=== PATIENT | female | born 1935 | race Caucasian/White ===

== ENCOUNTER 2019-02-12 07:11 | Outpatient (CLI) ==
--- NOTE | 2019-02-12 08:56 | US ---
EXAM: Right upper quadrant abdominal ultrasound. History: Elevated liver enzymes. Technique: Multiple sonographic images through the abdomen were obtained. Color duplex Doppler was used to interrogate vascular flow. Findings: Limited evaluation due to bowel gas. Visualized pancreas demonstrates no gross abnormality. There is antegrade flow within the main muna l vein. The liver is not enlarged according to the sonographic measurement given. No focal liver le sions identified sonographically. The liver is not obviously echogenic. Status post cholecystectomy. Common bile duct measures 0.5 cm in caliber. No abdominal ascites. Impression: Limited evaluation due to bowel gas. The liver was not well seen but is not obviously e chogenic. Consider correlation with MRI of the abdomen with and without contrast and MRCP if elevate d liver enzymes persist.
--- NOTE | 2019-02-12 08:58 | US ---
EXAM: Renal ultrasound. History: Decreased renal function. Technique: Multiple sonographic images through the kidneys were obtained. Color duplex Doppler was used to interrogate vascular flow. Findings: The right kidney measures 10.3 cm in long length demonstrating slightly increased cortical echogenici ty without evidence for hydronephrosis, mass or shadowing calculus. The left kidney measures 9.3 cm in long length demonstrating slightly increased cortical echogenicity without evidence for hydronephrosis, mass or shadowing calculus. The bladder was not well distended. No obvious bladder wall thickening. Neither ureteral jet was se en in the bladder. Impression: 1. No hydronephrosis. 2. Slightly increased cortical echogenicity of the bilateral kidneys suggesting medical renal diseas e.
== END 2019-02-12 07:12 | disposition home or self-care (01) ==
LOC: RAD 07:11
PROVIDERS: ATTEND Family Medicine
DX: N28.9 Disorder of kidney and ureter, unspecified (principal); R74.8 Abnormal levels of other serum enzymes

== ENCOUNTER 2019-03-05 16:39 | Emergency (ER) | payer OTHER ==
[2019-03-05 16:46] VITALS: BP 142/85; TEMP 98.6; BMI 29.6
--- NOTE | 2019-03-05 17:21 | ED.PDOC ---
General ED Provider: Dr. ADRIEN COULTER Chief Complaint: Behavioral Complaint Stated Complaint: pt hx of dementia with periods of eratic behavior. Attempted leaving home. Has been accepted at [facility] behavioral unit at [place], [place]. Has been having periods of confusion-combative at times with hallucination. Referred by PCP for medical clearance. Is alert--speaking clearly at present--is cooperative. Unaware of current problems. Time Seen by Physician: 17:15 Mode of Arrival: Walk-In Information Source: Patient, Family Exam Limitations: Dementia Primary Care Provider: ERAN WELSH Referred to ED by: PCP Nursing and Triage Documentation Reviewed and Agree: Yes Does patient meet sepsis criteria?: No System Inflammatory Response Syndrome: Not Applicable Sepsis Protocol: For patient's 13 years and over: Temp is 96.8 and below OR 101 and greater Pulse >90 BPM Resp >20/minute Acutely Altered Mental Status Are patient's symptoms suggestive of a new infection, such as: -Pneumonia -Skin, Soft Tissue -Endocarditis -UTI -Bone, Joint Infection -Implantable Device -Acute Abdominal Infection -Wound Infection -Meningitis -Blood Stream Catheter Infection -Unknown Psychological Complaint Exam - Psychiatric Complaint/Exam Patient Complains Of: Present: Depression, Other (Dementia) Onset/Duration: Several months Symptoms Are: Still present Timing: Constant Episodes Lasting: Hours Initial Severity: Moderate Current Severity: Moderate Character: Present: Anxious Aggravating: Reports: Recent stress Associated Signs And Symptoms: Reports: Confused, Hallucinating, Paranoid behavior, Sleep disturbance Related History: Reports: Recent stressors ( in NH with terminal illness) . Denies: Suicidal thoughts, Homicidal thoughts Completed Suicide Risk Factors: None Patient Accompanied By: Family Patient In Custody Of Police: No Social Withdrawal Present: No Social Isolation Present: No Prior Suicide Attempt: No Injury From Prior Suicide Attempt: No Patient Uncooperative For Exam: No Mood: Present: Anxious Appearance: Present: Clean Thought Process: Present: Illogical, Flight of ideas Insight: Present: Poor Memory: Impaired Judgement: Impaired Danger To Others: No Patient Medically Stable For: Psych evaluation Differential Diagnoses: Anxiety, Depression, Other (Dementia. R/O Shizoaffective disorder and advanced Dementia) Review of Systems - Review Of Systems Constitutional: Reports: No symptoms Eyes: Reports: No symptoms Ears, Nose, Mouth, Throat: Reports: No symptoms Respiratory: Reports: No symptoms Cardiac: Reports: No symptoms GI: Reports: No symptoms : Reports: No symptoms Musculoskeletal: Reports: No symptoms Skin: Reports: No symptoms Neurological: Reports: Anxiety Endocrine: Reports: No symptoms Hematologic/Lymphatic: Reports: No symptoms All Other Systems: Reviewed and Negative Past Medical History - Past Medical History Endocrine: Reports: Unknown Cardiovascular: Reports: Unknown Respiratory: Reports: Unknown Hematological: Reports: Unknown Gastrointestinal: Reports: Unknown Genitourinary: Reports: None Neuro/Psych: Reports: Dementia Musculoskeletal: Reports: Unknown Cancer: Reports: None Last Menstrual Period: menopause - Surgical History General Surgical History: Reports: Unknown - Family History Family History: Reports: Unknown - Social History Smoking Status: Never smoker Hx Substance Use: No Alcohol Screening: None Physical Exam - Physical Exam Appearance: Well-appearing Ill-appearing: Mild Pain Distress: None Eyes: JO, EOMI, Conjunctiva clear ENT: Ears normal, Nose normal, Oropharynx normal Neck: Supple Respiratory: Airway patent, Breath sounds clear, Breath sounds equal, Respirations nonlabored Cardiovascular: RRR, Pulses normal, No rub, No murmur GI/: Soft, Nontender, No masses, Bowel sounds normal, No Organomegaly Musculoskeletal: Normal strength, ROM intact, No edema, No calf tenderness Skin: Warm, Dry, Normal color Neurological: Sensation intact, Motor intact, Reflexes intact, Cranial nerves intact, Alert, Oriented, Disoriented Psychiatric: Affect appropriate (Flat), Anxious Critical Care Note - Critical Care Note Total Time (mins): 60 Course - Course Hematology/Chemistry: 03/05/19 17:23 03/05/19 17:23 Orders, Labs, Meds: Lab Review 03/05/19 03/05/19 17:23 17:23 WBC 7.08 RBC 4.05 L Hgb 12.3 Hct 35.9 L MCV 88.6 MCH 30.4 MCHC 34.3 RDW Coeff of Livan 13.5 Plt Count 182 Immature Gran % (Auto) 0.3 Neut % (Auto) 59.4 Lymph % (Auto) 31.2 [place] % (Auto) 5.8 Eos % (Auto) 2.7 Baso % (Auto) 0.6 Immature Gran # (Auto) 0.0 Neut # (Auto) 4.2 Lymph # (Auto) 2.2 [place] # (Auto) 0.4 Eos # (Auto) 0.2 Baso # (Auto) 0.0 Sodium 137.3 Potassium 3.52 Chloride 102.9 Carbon Dioxide 25.0 Anion Gap 12.92 BUN 13.3 Creatinine 1.07 Estimated GFR (MDRD) 49.00 BUN/Creatinine Ratio 12.42 Glucose 140.1 H Calcium 9.27 Total Bilirubin 1.45 H AST 28.8 ALT 9.8 Alkaline Phosphatase 106.3 Total Protein 7.68 Albumin 4.57 Globulin 3.11 Albumin/Globulin Ratio 1.46 Salicylate Level mg/dL < 1.00 Acetaminophen < 10.0 L Plasma/Serum Alcohol < 10.0 Orders Category Date Time Status EKG-(ED ONLY) Stat CARDIO 03/05/19 17:13 Completed ED SLOOP CAPTAIN APPLIED ONCE EMERGENCY 03/05/19 17:13 Active ACETAMINOPHEN Stat LAB 03/05/19 17:23 Completed BLOOD ALCOHOL Stat LAB 03/05/19 17:23 Completed CBC W/ AUTO DIFF Stat LAB 03/05/19 17:23 Completed COMPREHENSIVE METABOLIC PANEL Stat LAB 03/05/19 17:23 Completed DRUG SCREEN, URINE, RAPID Stat LAB 03/05/19 17:13 Ordered SALICYLATE Stat LAB 03/05/19 17:23 Completed URINALYSIS C & S IF INDICATED Stat LAB 03/05/19 17:13 Uncollected Vital Signs: Temp Pulse Resp BP Pulse Ox 03/05/19 16:40 98.6 F 83 20 142/85 H 96 Departure - Departure Time of Disposition: 18:30 Disposition: TSF TO PSYCH HOSP/UNIT Discharge Problem: Dementia, Depression Instructions: Alzheimer Disease (DC) Condition: Fair Pt referred to PMD for follow-up: Yes IPMP verified?: No Additional Instructions: Cleared for transfer Allergies/Adverse Reactions: Allergies No Known Allergies Allergy (Unverified 03/05/19 16:47) Home Medications: Ambulatory Orders 1 [Unobtainable] 03/05/19 Disposition Discussed With: Patient, Family
[2019-03-05] MEDS ORDERED: VISTARIL INJ IM STA (18:51)
== END 2019-03-05 19:15 ==
LOC: ED 16:39
DX: F03.90 Unspecified dementia, unspecified severity, without behavioral disturbance, psychotic disturbance, mood disturbance, and anxiety (principal); F32.9 Major depressive disorder, single episode, unspecified
CPT/HCPCS: 36415; 80053; 80307; 85025; 93005; 93010; 96372; 99285

== ENCOUNTER 2019-03-05 19:13 | Outpatient (CLI) | payer OTHER ==
[2019-03-05 16:46] VITALS: BMI 29.6
== END 2019-03-05 19:57 ==
LOC: AMBL 19:13
PROVIDERS: ATTEND Family Medicine
DX: R46.89 Other symptoms and signs involving appearance and behavior (principal)

== ENCOUNTER 2019-07-21 10:56 | Inpatient (IN) ==
[2019-07-21 11:05] VITALS: BMI 23.3
--- NOTE | 2019-07-21 12:02 | ED.PDOC ---
General ED Provider: Dr. ADRIEN COULTER Chief Complaint: Weakness Stated Complaint: Has dementia and has develped progressive weakness over past month. Was residing in [facility] with her but he 4 weeks ago after which patient was taken home to live with her Son. He states since then she has progressively became weaker, less interactive, less oral intake and refuses to ambulate.He states up until last few weeks she would ambulate and function independently. Time Seen by Physician: 11:45 Mode of Arrival: Wheelchair Information Source: Patient, Family Exam Limitations: Dementia Primary Care Provider: ERAN JFEFERSON Nursing and Triage Documentation Reviewed and Agree: Yes Does patient meet sepsis criteria?: Yes If yes, has appropriate treatment been initiated?: No System Inflammatory Response Syndrome: Pulse >90 BPM, Acutely Altered Mental Status, Not Applicable Sepsis Protocol: For patient's 13 years and over: Temp is 96.8 and below OR 101 and greater Pulse >90 BPM Resp >20/minute Acutely Altered Mental Status Are patient's symptoms suggestive of a new infection, such as: -Pneumonia -Skin, Soft Tissue -Endocarditis -UTI -Bone, Joint Infection -Implantable Device -Acute Abdominal Infection -Wound Infection -Meningitis -Blood Stream Catheter Infection -Unknown Neurological Complaint Exam - Weakness Complaint/Exam Onset: Gradual Duration: 3 weeks Symptoms Are: Still present Timing: Intermittent Initial Severity: Moderate Current Severity: Moderate Character: Reports: Weak Aggravating: Reports: Position change, Supine to erect Alleviating: Reports: Rest, Lying down Associated Signs and Symptoms: Reports: Nausea, Short of air, Unsteady gait Related History: Similar episode JVD Present: No Carotid Bruit Present: No Nystagmus Present: No Gag Reflex Present: Yes Meningeal Signs Positive: No Focal Weakness: Present: None Focal Sensory Loss: Present: None Gait: Unable [id number]: Normal Findings Differential Diagnoses: Other Review of Systems - Review Of Systems Constitutional: Reports: Malaise, Weakness Eyes: Reports: No symptoms Ears, Nose, Mouth, Throat: Reports: No symptoms Respiratory: Reports: No symptoms Cardiac: Reports: No symptoms GI: Reports: Poor appetite, Poor fluid intake : Reports: Dysuria, Frequency, Incontinence, Urgency Musculoskeletal: Reports: No symptoms Skin: Reports: No symptoms Neurological: Reports: Depressed, Cognitive dysfunction, Unable to move lower ext, Weakness Endocrine: Reports: No symptoms Hematologic/Lymphatic: Reports: No symptoms All Other Systems: Reviewed and Negative Past Medical History - Past Medical History Previously Healthy: No (Dementia) Endocrine: Reports: Unknown Cardiovascular: Reports: Unknown Respiratory: Reports: Unknown Hematological: Reports: Unknown Gastrointestinal: Reports: Unknown Genitourinary: Reports: None Neuro/Psych: Reports: Dementia Musculoskeletal: Reports: Unknown Cancer: Reports: None Last Menstrual Period: none - Surgical History General Surgical History: Reports: Unknown - Family History Family History: Reports: Unknown - Social History Smoking Status: Never smoker Hx Substance Use: No Alcohol Screening: None - Immunizations Tetanus Shot up to Date: Yes Physical Exam - Physical Exam Appearance: Ill-appearing, No pain distress, Obese Ill-appearing: Moderate Pain Distress: None Eyes: JO, EOMI, Conjunctiva clear ENT: Ears normal, Nose normal, Oropharynx normal Neck: Supple Respiratory: Airway patent, Breath sounds clear, Breath sounds equal, Respirations nonlabored Cardiovascular: RRR, Pulses normal, No rub, No murmur GI/: Soft, Nontender, No masses, Bowel sounds normal, No Organomegaly Musculoskeletal: Normal strength, ROM intact, No edema, No calf tenderness Skin: Warm, Dry, Pale Neurological: Sensation intact, Motor intact, Reflexes intact, Cranial nerves intact, Alert, Oriented Psychiatric: Affect appropriate, Mood appropriate Interpretation - Radiology Interpretation Radiology Interpretation By: Radiologist Radiology Results: No acute changes Exam Interpreted: Portable CXR Re-Evaluation - Re-Evaluation Time of Re-Evaluation: 14:15 Status: Unchanged Vital Signs Stable: Yes Physician Notification - Case Discussed Physician Notified: Dr Jefferson Time of Notification: 14:05 (admit Patient) Critical Care Note - Critical Care Note Total Time (mins): 60 Course - Course Hematology/Chemistry: 07/21/19 12:20 07/21/19 12:20 Orders, Labs, Meds: Lab Review 07/21/19 07/21/19 07/21/19 11:31 11:31 12:10 WBC RBC Hgb Hct MCV MCH MCHC RDW Coeff of Livan Plt Count Immature Gran % (Auto) Neut % (Auto) Lymph % (Auto) [place] % (Auto) Eos % (Auto) Baso % (Auto) Immature Gran # (Auto) Neut # (Auto) Lymph # (Auto) Campbell # (Auto) Eos # (Auto) Baso # (Auto) Sodium Potassium Chloride Carbon Dioxide Anion Gap BUN Creatinine Estimated GFR (MDRD) BUN/Creatinine Ratio Glucose Lactic Acid Uric Acid Calcium Total Bilirubin AST ALT Alkaline Phosphatase Total Creatine Kinase CK-MB (CK-2) CK-MB (CK-2) % Troponin I Total Protein Albumin Globulin Albumin/Globulin Ratio Procalcitonin Urine Color Yellow Urine Clarity Turbid Urine pH 5.5 Ur Specific [place] >=1.030 Urine Protein 1+ Urine Glucose (UA) Negative Urine Ketones 2+ Urine Blood 1+ Urine Nitrite Positive Urine Bilirubin 1+ Urine Urobilinogen 0.2 Ur Leukocyte Esterase 1+ Urine Microscopic RBC 5-10 Urine Microscopic WBC 50-100 Ur Squamous Epith Cells Not present Amorphous Sediment 4+ Urine Bacteria 2+ Urine Opiates Screen Negative Ur Oxycodone Screen Negative Urine Methadone Screen Negative Ur Propoxyphene Screen Negative Ur Barbiturates Screen Negative U Tricyclic Antidepress Negative Ur Phencyclidine Scrn Negative Ur Amphetamine Screen Negative U Methamphetamines Scrn Negative U Benzodiazepines Scrn Negative Urine Cocaine Screen Negative U Cannabinoids Screen Negative Influ A Molecular Assay Negative by naat Influ B Molecular Assay Negative by naat 07/21/19 07/21/19 07/21/19 12:20 12:20 12:20 WBC 10.67 H RBC 3.70 L Hgb 11.6 L Hct 33.4 L MCV 90.3 MCH 31.4 H MCHC 34.7 RDW Coeff of Livan 13.7 Plt Count 169 Immature Gran % (Auto) 0.5 Neut % (Auto) 86.4 Lymph % (Auto) 5.2 L [place] % (Auto) 7.5 Eos % (Auto) 0.2 Baso % (Auto) 0.2 Immature Gran # (Auto) 0.1 Neut # (Auto) 9.2 H Lymph # (Auto) 0.6 [place] # (Auto) 0.8 Eos # (Auto) 0.0 Baso # (Auto) 0.0 Sodium 138.4 Potassium 2.32 L* Chloride 95.5 L Carbon Dioxide 31.9 H Anion Gap 13.32 BUN 20.8 H Creatinine 1.42 H Estimated GFR (MDRD) 36.00 BUN/Creatinine Ratio 14.64 Glucose 179.1 H Lactic Acid Uric Acid 7.94 H Calcium 8.97 Total Bilirubin 2.76 H AST 29.1 ALT 13.1 Alkaline Phosphatase 79.1 Total Creatine Kinase 174.2 H CK-MB (CK-2) 1.630 CK-MB (CK-2) % 0.9300 Troponin I 0.027 Total Protein 7.74 Albumin 4.08 Globulin 3.66 Albumin/Globulin Ratio 1.11 Procalcitonin 0.26 Urine Color Urine Clarity Urine pH Ur Specific [place] Urine Protein Urine Glucose (UA) Urine Ketones Urine Blood Urine Nitrite Urine Bilirubin Urine Urobilinogen Ur Leukocyte Esterase Urine Microscopic RBC Urine Microscopic WBC Ur Squamous Epith Cells Amorphous Sediment Urine Bacteria Urine Opiates Screen Ur Oxycodone Screen Urine Methadone Screen Ur Propoxyphene Screen Ur Barbiturates Screen U Tricyclic Antidepress Ur Phencyclidine Scrn Ur Amphetamine Screen U Methamphetamines Scrn U Benzodiazepines Scrn Urine Cocaine Screen U Cannabinoids Screen Influ A Molecular Assay Influ B Molecular Assay 07/21/19 12:20 WBC RBC Hgb Hct MCV MCH MCHC RDW Coeff of Livan Plt Count Immature Gran % (Auto) Neut % (Auto) Lymph % (Auto) [place] % (Auto) Eos % (Auto) Baso % (Auto) Immature Gran # (Auto) Neut # (Auto) Lymph # (Auto) [place] # (Auto) Eos # (Auto) Baso # (Auto) Sodium Potassium Chloride Carbon Dioxide Anion Gap BUN Creatinine Estimated GFR (MDRD) BUN/Creatinine Ratio Glucose Lactic Acid 1.05 Uric Acid Calcium Total Bilirubin AST ALT Alkaline Phosphatase Total Creatine Kinase CK-MB (CK-2) CK-MB (CK-2) % Troponin I Total Protein Albumin Globulin Albumin/Globulin Ratio Procalcitonin Urine Color Urine Clarity Urine pH Ur Specific [place] Urine Protein Urine Glucose (UA) Urine Ketones Urine Blood Urine Nitrite Urine Bilirubin Urine Urobilinogen Ur Leukocyte Esterase Urine Microscopic RBC Urine Microscopic WBC Ur Squamous Epith Cells Amorphous Sediment Urine Bacteria Urine Opiates Screen Ur Oxycodone Screen Urine Methadone Screen Ur Propoxyphene Screen Ur Barbiturates Screen U Tricyclic Antidepress Ur Phencyclidine Scrn Ur Amphetamine Screen U Methamphetamines Scrn U Benzodiazepines Scrn Urine Cocaine Screen U Cannabinoids Screen Influ A Molecular Assay Influ B Molecular Assay Orders Category Date Time Status EKG-(ED ONLY) Stat CARDIO 07/21/19 12:03 Completed VITAL SIGNS Q30MIN CARE 07/21/19 12:03 Active IV [ED IV/MEDIPORT/POWERPORT] .ONCE EMERGENCY 07/21/19 12:03 Active BLOOD CULTURE (ED ONLY) Stat LAB 07/21/19 12:20 Received CBC W/ AUTO DIFF Stat LAB 07/21/19 12:20 Completed CMP [COMPREHENSIVE METABOLIC PANEL] Stat LAB 07/21/19 12:20 Completed CPK [CREATINE KINASE] Stat LAB 07/21/19 12:20 Completed FLU A & B MOLECULAR [FLU A/B MOLECULAR] Stat LAB 07/21/19 12:10 Completed LACTIC ACID Stat LAB 07/21/19 12:20 Completed PROCALCITONIN Stat LAB 07/21/19 12:20 Completed TROPONIN I Stat LAB 07/21/19 12:20 Completed UA [URINALYSIS C & S IF INDICATED] Stat LAB 07/21/19 11:31 Completed URIC ACID Stat LAB 07/21/19 12:20 Completed URINE CULTURE Stat LAB 07/21/19 11:31 Received URINE DRUG SCREEN (RAPID FOR ED) [DRUG SCREEN, URINE, LAB 07/21/19 11:31 Completed RAPID] Stat 0.9 % Sodium Chloride [Saline Flush] MEDS 07/21/19 12:03 Active 1 syr IVF PRN PRN Ceftriaxone/D5w 1 gm Premix [Rocephin 1 gm/50 ml D5w] MEDS 07/21/19 13:20 Discontinued 1 gm in 50 ml IV ONCE Potassium Chloride [Potassium Chloride Premix Run] 100 MEDS 07/21/19 13:14 Discontinued ml IV .STK-MED Potassium Chloride [Potassium Chloride Premix Run] 20 MEDS 07/21/19 13:12 Active meq Premix 100 ml Water 1 bag IV ONCE Potassium Chloride [Potassium Chloride Premix Run] 20 MEDS 07/21/19 13:10 Active meq Premix 100 ml Water 2 bag IV ONCE Sodium Chloride 0.9% [Sodium Chloride] 1,000 ml MEDS 07/21/19 12:12 Discontinued IV BOLUS Sodium Chloride 0.9% [Sodium Chloride] 1,000 ml MEDS 07/21/19 13:00 Active IV BOLUS CHEST, 1V AP ONLY Stat RADS 07/21/19 12:04 Completed Medications Generic Name Dose Route Start Last Admin Trade Name Freq PRN Reason Stop Dose Admin Sodium Chloride 1,000 mls @ 125 mls/hr 07/21/19 13:00 07/21/19 12:45 Sodium Chloride IV 07/21/19 20:11 125 mls/hr BOLUS STA Administration Potassium Chloride 20 meq/ 100 mls @ 50 mls/hr 07/21/19 13:12 07/21/19 13:26 Sterile Water IV 07/21/19 15:11 50 mls/hr ONCE STA Administration Potassium Chloride 20 meq/ 200 mls @ 100 mls/hr 07/21/19 13:10 07/21/19 13:29 Sterile Water IV 07/21/19 15:09 Not Given ONCE STA Sodium Chloride 1 syr 07/21/19 12:03 Saline Flush IVF PRN PRN To flush IV Discontinued Medications Generic Name Dose Route Start Last Admin Trade Name Corby PRN Reason Stop Dose Admin Sodium Chloride 1,000 mls @ 500 mls/hr 07/21/19 12:12 07/21/19 13:39 Sodium Chloride IV 07/21/19 14:11 Not Given BOLUS STA CEFTRIAXONE/D5W 1 GM PREMIX 1 gm in 50 mls @ 75 mls/hr 07/21/19 13:20 13:33 Rocephin 1 Gm/50 Ml D5w IV 07/21/19 13:59 75 mls/hr ONCE STA Administration Vital Signs: Temp Pulse Resp BP Pulse Ox 07/21/19 10:57 99.9 F H 99 H 16 127/74 98 Departure - Departure Time of Disposition: 14:10 Disposition: ADMITTED INPATIENT Discharge Problem: Acute UTI (urinary tract infection), Sepsis, Dementia Condition: Stable Pt referred to PMD for follow-up: Yes (Dr Jefferson) IPMP verified?: No Allergies/Adverse Reactions: Allergies No Known Allergies Allergy (Verified 07/21/19 11:11) Home Medications: Ambulatory Orders Acetaminophen with Codeine [Acetaminophen-Cod #3 Tablet] 1 each PO Q6H PRN 07/21 Alogliptin Benzoate [Alogliptin] 12.5 mg PO DAILY 07/21/19 Bismuth Subsalicylate [Pepto-Bismol] 262 mg PO Q6H PRN 07/21/19 Buspirone HCl 10 mg PO TID 07/21/19 Diclofenac Sodium 100 gm TP Q6H PRN 07/21/19 Donepezil HCl 10 mg PO BEDTIME 07/21/19 Folic Acid 1 mg PO DAILY 07/21/19 Losartan Potassium [Cozaar] 25 mg PO DAILY 07/21/19 Memantine HCl 10 mg PO BID 07/21/19 Omeprazole [Prilosec] 20 mg PO BIDAC 07/21/19 Risperidone [Risperdal] 0.5 mg PO TID 07/21/19 Sitagliptin Phosphate [Januvia] 50 mg PO DAILY 07/21/19 Tramadol HCl 50 mg PO Q6H PRN 07/21/19 Trazodone HCl 50 mg PO BEDTIME 07/21/19 Vortioxetine Hydrobromide [Brintellix] 5 mg PO DAILY 07/21/19 Disposition Discussed With: Patient, Other (Dr Jefferson)
[2019-07-21] MEDS ORDERED: SODIUM CHLORIDE 1,000 ML IV STA ×2 (12:12→13:00)
[2019-07-21] MEDS ORDERED: POTASSIUM CHLORIDE 20 MEQ VIAL- ADDITIVE ONLY IV SCH (13:00)
--- NOTE | 2019-07-21 13:02 | DI ---
EXAM: Chest one view HISTORY: Cough COMPARISON: 08/31/2008 TECHNIQUE: Single view of the chest was performed FINDINGS: Mild left basilar subsegmental atelectasis and/or scarring. No airspace consolidation. T here is no pleural effusion or pneumothorax. The heart is normal in size. The mediastinal contour i s normal. There are no acute abnormalities of the bones. Cervical and lumbar spinal fusion hardware is incompletely imaged. IMPRESSION: No acute cardiopulmonary process.
[2019-07-21] MEDS ORDERED: POTASSIUM CHLORIDE IV STA ×3 (13:06→13:12)
[2019-07-21] MEDS ORDERED: WATER IV STA ×3 (13:06→13:12)
[2019-07-21] MEDS ORDERED: POTASSIUM CHLORIDE 20 MEQ/100 ML IV ONE (13:14)
[2019-07-21] MEDS ORDERED: ROCEPHIN 1 GM/50 ML D5W 1 GM/50 ML BAG IV STA (13:20)
[2019-07-21] MEDS ORDERED: TYLENOL PO PRN (14:18)
[2019-07-21] MEDS ORDERED: ULTRAM PO PRN (14:25)
[2019-07-21] MEDS ORDERED: NON-FORMULARY MEDICATION (Risperidone [Risperdal] 0.5 MG) PO SCH (15:00)
[2019-07-21] MEDS: BUSPAR PO SCH ×2 (16:15→20:14)
[2019-07-21] MEDS: RISPERDAL PO SCH ×2 (16:16→20:14)
[2019-07-21] MEDS: PRILOSEC PO SCH (16:17)
[2019-07-21] MEDS: NAMENDA PO SCH (20:14)
[2019-07-21] MEDS: ARICEPT PO SCH (20:14)
[2019-07-21] MEDS: DESYREL PO SCH (20:15)
[2019-07-22] MEDS: PRILOSEC PO SCH ×2 (05:43→16:57)
[2019-07-22] MEDS ORDERED: WATER IV SCH (07:00)
[2019-07-22] MEDS ORDERED: POTASSIUM CHLORIDE IV SCH (07:00)
[2019-07-22] MEDS ORDERED: POTASSIUM CHLORIDE 10 MEQ/100 ML IV ONE (07:39)
[2019-07-22] MEDS: K-DUR PO SCH ×4 (07:55→20:43)
[2019-07-22] MEDS ORDERED: POTASSIUM CHLORIDE IV STA (08:04)
[2019-07-22] MEDS ORDERED: WATER IV STA (08:04)
[2019-07-22] MEDS: BUSPAR PO SCH ×3 (08:11→20:43)
[2019-07-22] MEDS: FOLIC ACID PO SCH (08:11)
[2019-07-22] MEDS: NAMENDA PO SCH ×2 (08:11→20:43)
[2019-07-22] MEDS: COZAAR PO SCH (08:11)
[2019-07-22] MEDS: TRADJENTA PO SCH (08:11)
[2019-07-22] MEDS: JANUVIA PO SCH (08:11)
[2019-07-22] MEDS: RISPERDAL PO SCH ×3 (08:12→20:43)
[2019-07-22] MEDS: ALOGLIPTIN BENZOATE 12.5 MG PO SCH (08:12)
[2019-07-22] MEDS: VORTIOXETINE HYDROBROMIDE 5 MG PO SCH (08:13)
[2019-07-22] MEDS ORDERED: ROCEPHIN 1 GM VIAL 1 GM in SODIUM CHLORIDE 50 ML IV SCH (09:00)
[2019-07-22] MEDS: ROCEPHIN 1 GM/50 ML D5W 1 GM/50 ML BAG IV SCH (09:18)
[2019-07-22] MEDS ORDERED: WATER IV ONE ×3 (10:00→14:00)
[2019-07-22] MEDS ORDERED: POTASSIUM CHLORIDE IV ONE ×3 (10:00→14:00)
--- NOTE | 2019-07-22 13:30 | RS.PTINEVL ---
Subjective - Patient information Date of Evaluation: 07/22/19 Date of Arrival on Unit: 07/21/19 Admitted From:: Home Diagnosis: UTI, sepsis, dementia, difficulty walking, balance impairment Usual Living Arrangement: son Living Arrangement Comments: Lives with son Home Environment: House, Stairs (few), Rail Medical History: Hypertension Medical History Comments:: osteoporosis, Alzheimer's Medications: see chart Subjective Information/ Patient Comments:: pt states that she needs her son. Repeatedly calls out for son. - Level of function Prior to this admission, the patient could do the following:: Partially Dependent Ambulation Abilities prior to this admission: pt poor historian and no family present. Current Level of Function: Dependent Current Equipment Used at Home: shower, chair, hi rise toliet seat and hospital bed Interventions - Objective Patient Orientation: Person, Place Current Interventions: IV's, Telemetry Range of Motion - ROM Right Upper Extremity AROM: WFL's Left Upper Extremity AROM: WFL's Right Lower Extremity AROM: WFL's Left Lower Extremity AROM: WFL's Muscle Strength - Muscle Strength Right Upper Extremity Strength: Severe Weakness Left Upper Extremity Strength: Severe Weakness Right Lower Extremity Strength: Severe Weakness Left Lower Extremity Strength: Severe Weakness Comments:: pt with difficulty following commands strength atleast 3/5 as noted by ROM. Sensation - Sensation Right Upper Extremity Sensation: Intact/Normal Left Upper Extremity Sensation: Intact/Normal Right Lower Extremity Sensation: Intact/Normal Left Lower Extremity Sensation: Intact/Normal Palpation Palpation Findings: None/Normal Balance - Sitting Balance and Reactions Static Sitting Balance: Poor Dynamic Sitting Balance: Poor Sitting Equilibrium Reactions: Absent Left, Absent Right Sitting Protective Reactions: Absent Left, Absent Right - Standing Balance and Reactions Static Standing Balance: Poor Dynamic Standing Balance: Poor Standing Equilibrium Reactions: Absent Left, Absent Right Standing Protective Reactions: Absent Left, Absent Right Functional Mobility - Bed Mobility Rolling R/L: Max Assist, 2 person assist Scooting: Max Assist, 2 person assist Supine to Sit: Max Assist, 2 person assist - Transfers Sit to Stand: Max Assist, 2 person assist Stand to Sit: Max Assist, 2 person assist Stand Pivot Transfers: Max Assist, 2 person assist - Safety Awareness Safety Awareness: Fair CACHORRO INDEX SCORE: n/a Ambulation - Ambulation Ambulation Comments: pt unable to amb this am stand pivot bed to chair only. Treatment time - Time with patient Length of Evaluation: 22 Total treatment time: 32 Patient Education - Education Patient Education: Home Exercise Program, Education of Plan of Care Teaching Recipient: Patient Teaching Methods: Discussion (discussion regarding POC, however pt confused re situation) Assessment - Assessment Problem List:: Decreased level of function, Requires training/education, Decreased safety/Risk of falls, Weakness, Cognitive status limits abilities Rehab Potential: Fair Further Therapy Indicated?: Yes Candidate for Swing Bed for Therapy Services?: Feel pt may not be candidate for swing bed due to cognitive status. Evaluation Complexity: HISTORY: Medium, EXAM OF BODY SYSTEMS: Medium, CLINICAL PRESENTATION: Medium, CLINICAL DECISION MAKING: Medium Short Term Goals GOAL #1: pt demonstrate rolling and bridging with CGA x 1 Goal to be met by: 07/24/19 GOAL #2: Transfer sup to/from sit minx 2 Goal to be met by: 07/24/19 GOAL #3: Sit to/from stand min x 2 Goal to be met by: 07/24/19 GOAL #4: pt able to amb with rwx 25ft with min x 2 Goal to be met by: 07/24/19 Care Home Goals GOAL #1: Transfer sup to/from sit to/from stand min x 1 Goal to be met by: 07/27/19 GOAL #2: pt amb with rwx 50ft with min x 1 Goal to be met by: 07/27/19 GOAL #3: Improved dyn stand balance fair. Goal to be met by: 07/27/19 Plan Plan of Care: Therapeutic EX, Therapeutic Activity Other:: gait training Frequency of Treatment: 1-2 X day, as tolerated Duration of Treatment: 5 days Anticipated Discharge Destination: unsure Treatment Diagnosis (ICD 10 Codes): R26.2 difficulty walking. R 26.82 balance impaired. Z91.81 risk of falls. Has the Physician been added for Co-signature?: Yes
--- NOTE | 2019-07-22 13:36 | RS.OTINEVL ---
Subjective - Patient information Date of Evaluation: 07/22/19 Date of Arrival on Unit: 07/21/19 Admitted From:: Emergency Dept Diagnosis: UTI, Mental status change, dementia PRECAUTIONS: A high risk for falls. Usual Living Arrangement: With Others Living Arrangement Comments: Living with her [place]. Medical History: Dementia Medical History Comments:: Alzheimer's disease, osteoporosis, anxiety, depression, MSD, behavior problems, respiratory distresss, Subjective Information/ Patient Comments:: "I didn't know I was living with my son." - Level of function Prior to this admission, the patient could do the following:: Partially Dependent Ambulation Abilities prior to this admission: a few weeks ago patient was ambulatory in her home and able to function more independently than today. Current Level of Function: Partially Dependent Current Equipment Used at Home: shower, chair, hi rise toliet seat and hospital bed Pain Assessment - Pain Pain Score: 0 Interventions - Objective Patient Orientation: Person, Place, Situation Current Interventions: IV's, Telemetry Observation: Pt has a flat affect and is maximum x 2 to transfer to her chair. Interventions - ROM Right Upper Extremity AROM: WFL's Left Upper Extremity AROM: WFL's - Strength Right Upper Extremity Strength: Mild Weakness Left Upper Extremity Strength: Mild Weakness - Sensation Right Upper Extremity Sensation: Intact/Normal Left Upper Extremity Sensation: Intact/Normal Balance - Sitting Balance Static Sitting Balance: Poor Dynamic Sitting Balance: Poor - Standing Balance Static Standing Balance: Poor Dynamic Standing Balance: Poor - Comments Balance Assessment Comments: Poor ADL Skills - Grooming Grooming: Max Assist - Bathing Bathing UE: Not Tested Bathing LE: Not Tested - Dressing Dressing UE: Max Assist Dressing LE: Max Assist - Toilet Management Toileting Management: Max Assist Functional Mobility - Bed Mobility Rolling R/L: Min Assist Scooting: Min Assist Supine to Sit: Mod Assist Sit to Supine: Min Assist - Transfers Sit to Stand: Max Assist, 2 person assist Stand to Sit: Max Assist, 2 person assist Stand Pivot Transfers: Max Assist, 2 person assist - Ambulation Weight Bearing Status: FWB Assistive Device Used: Rolling Walker Assistance needed with Ambulation: Max Assist, 2 person assist - Safety Awareness Safety Awareness: Poor CACHORRO INDEX SCORE: . Additional Treatment Performed - Time with patient Length of Evaluation: 20 Total treatment time: 20 Activities Do you enjoy playing games?: No Would you be interested in leaving your room for activities?: No Would you enjoy group activities?: No Do you have difficulty with your vision?: No Patient Education Patient Education: Education of diagnosis, Home Exercise Program, Home Safety, Education of Plan of Care Teaching Recipient: Patient Teaching Methods: Discussion Assessment Problem List:: Decreased level of function, Requires training/education, Decreased safety/Risk of falls, Weakness, Pain limits previous level of function , Cognitive status limits abilities Rehab Potential: Good Further Therapy Indicated?: Yes Evaluation Complexity: HISTORY: Medium, EXAM OF BODY SYSTEMS: Medium, CLINICAL DECISION MAKING: Medium Short Term Goals - Goals GOAL 1: Pt to increase functional standing time to 10 minutes. Goal to be met by: 07/24/19 GOAL 2: Pt to increase BUE strength to 4/5. Goal to be met by: 07/27/19 GOAL 3: Pt to be CGA for toileting on toilet. Goal to be met by: 07/27/19 Plant Operations Worker Goals GOAL 1: to increase dyn. std. bal. to Fair- Goal to be met by: 07/30/19 GOAL 2: Pt to increase BUE strength to 4/5. Goal to be met by: 07/30/19 GOAL 3: Pt to be CGA for toileting. Goal to be met by: 07/30/19 Plan Plan of Care: Therapeutic EX, Neuromuscular Re-Educ, Therapeutic Activity, Self- Care/Home Management Frequency of Treatment: 1-2 X day, as tolerated Duration of Treatment: 2 Weeks Anticipated Discharge Destination: Home Treatment Diagnosis (ICD 10 Codes): Muscle weakness, M62.81, Z74.1 Need for assistance with perosnal care. Has the Physician been added for Co-signature?: Yes
[2019-07-22] MEDS: ARICEPT PO SCH (20:43)
[2019-07-22] MEDS: DESYREL PO SCH (20:43)
[2019-07-23] MEDS: PRILOSEC PO SCH ×2 (05:48→16:57)
[2019-07-23] MEDS: FOLIC ACID PO SCH (08:19)
[2019-07-23] MEDS: COZAAR PO SCH (08:19)
[2019-07-23] MEDS: RISPERDAL PO SCH ×3 (08:19→21:30)
[2019-07-23] MEDS: K-DUR PO SCH ×3 (08:19→21:30)
[2019-07-23] MEDS: JANUVIA PO SCH (08:19)
[2019-07-23] MEDS: NAMENDA PO SCH ×2 (08:19→21:30)
[2019-07-23] MEDS: BUSPAR PO SCH ×3 (08:20→21:30)
[2019-07-23] MEDS: ALOGLIPTIN BENZOATE 12.5 MG PO SCH (08:20)
[2019-07-23] MEDS: TRADJENTA PO SCH (08:20)
[2019-07-23] MEDS: VORTIOXETINE HYDROBROMIDE 5 MG PO SCH (08:21)
[2019-07-23] MEDS: ROCEPHIN 1 GM/50 ML D5W 1 GM/50 ML BAG IV SCH (08:21)
--- NOTE | 2019-07-23 14:45 | US ---
EXAM: RENAL ULTRASOUND, BILATERAL HISTORY: Urinary tract infection, elevated BUN FINDINGS: Ultrasound renal, bilateral. Mera-scale ultrasound and color Doppler imaging was performe d. The right kidney measured 8.6 x 4.2 x 3.9 cm and the left kidney 9.3 x 4.0 x 3.4 cm. No hydronephrosis, visible renal calculi or renal masses. Normal cortical echogenicity and volume. Urinary bladder appeared normal. Ureteral jets were not seen during the exam. IMPRESSION: 1. Grossly unremarkable findings sonographically.)
[2019-07-23] MEDS: DESYREL PO SCH (21:30)
[2019-07-23] MEDS: ARICEPT PO SCH (21:30)
[2019-07-24] MEDS: PRILOSEC PO SCH ×2 (05:52→17:06)
[2019-07-24] MEDS: ROCEPHIN 1 GM/50 ML D5W 1 GM/50 ML BAG IV SCH (09:49)
[2019-07-24] MEDS: RISPERDAL PO SCH ×2 (09:49→14:10)
[2019-07-24] MEDS: TRADJENTA PO SCH (09:50)
[2019-07-24] MEDS: FOLIC ACID PO SCH (09:50)
[2019-07-24] MEDS: NAMENDA PO SCH (09:50)
[2019-07-24] MEDS: JANUVIA PO SCH (09:50)
[2019-07-24] MEDS: K-DUR PO SCH ×2 (09:50→14:10)
[2019-07-24] MEDS: BUSPAR PO SCH ×2 (09:50→14:10)
[2019-07-24] MEDS: COZAAR PO SCH (09:50)
[2019-07-24] MEDS: VORTIOXETINE HYDROBROMIDE 5 MG PO SCH (09:51)
[2019-07-24] MEDS: ALOGLIPTIN BENZOATE 12.5 MG PO SCH (09:51)
[2019-07-24 13:41] VITALS: BP 120/80; TEMP 98.2
== END 2019-07-24 18:43 | DRG 689 ==
LOC: ED 10:56 → MEDSURG B 14:13
PROVIDERS: ADMIT Family Medicine; ATTEND Family Medicine